=== PATIENT | female | born 1965 | race Caucasian/White ===

== ENCOUNTER 2017-08-31 19:50 | Observation (INO) | payer OTHER ==
[~2017-08-31] VITALS: Ht 160 cm; Wt 74.8 kg
[2017-08-31 20:48] LABS: HEMOGLOBIN 14.9 G/DL (11.9-15.5); MCH 28.8 PG (29.0-34.0); MCHC 34.7 G/DL (30.0-36.0); PLATELET COUNT 282 K/uL (156-360); RBC DIS.WIDTH-CV 12.8 % (11.8-14.6); RBC DIS.WIDTH-SD 38.9 % (39-53); RED BLOOD COUNT 5.18 M/uL (3.80-5.20); WHITE BLOOD COUNT 8.6 K/uL (4.1-10.2)
[2017-08-31 21:07] LABS: CHLORIDE 104 MEQ/L (99-109); POTASSIUM 3.9 MEQ/L (3.7-5.4); SODIUM 138 MEQ/L (136-147)
[2017-08-31 21:09] LABS: TROP-I INTERPRETATION NEGATIVE; TROPONIN-I < 0.01 ng/mL (0.0-0.30)
[2017-08-31 21:12] LABS: CREATININE 0.7 MG/DL (0.6-1.3); GFR ESTIMATE (CALCULATED) > 59 mL/min/; GLUCOSE 119 mg/dL (70-99); UREA NITROGEN (BUN) 9 mg/dL (9-23)
[2017-08-31 23:07] LABS: PTT 34.6 SEC (25-37)
[2017-08-31 23:18] LABS: ALBUMIN 4.4 G/DL (3.2-4.8); CHLORIDE 105 MEQ/L (99-109); POTASSIUM 3.8 MEQ/L (3.7-5.4); SODIUM 138 MEQ/L (136-147); TOTAL BILIRUBIN 1.4 MG/DL (0.0-1.0)
[2017-08-31 23:24] LABS: ALKALINE PHOSPHATASE 77 IU/L (3-129); ALT (GPT) 18 IU/L (3-49); AST (GOT) 19 IU/L (2-34); CREATININE 0.7 MG/DL (0.6-1.3); GFR ESTIMATE (CALCULATED) > 59 mL/min/; GLUCOSE 119 mg/dL (70-99); LIPASE 49 U/L (1.0-51.0); TOTAL PROTEIN 7.1 G/DL (6.4-8.3); UREA NITROGEN (BUN) 9 mg/dL (9-23)
[2017-09-01] MEDS ORDERED: VITAMIN D22000 UNIT PO (01:29)
[2017-09-01] MEDS ORDERED: POTASSIUM GLU2.5 ME1 PO (01:30)
[2017-09-01] MEDS ORDERED: ECHINACEA HERB380 MG PO (01:30)
[2017-09-01] MEDS ORDERED: CINNAMON500 MG PO (01:30)
[2017-09-01] MEDS ORDERED: CLARITIN-D 21 TABLET PO (01:30)
[2017-09-01] MEDS ORDERED: FISH OIL 500 M1 EAC2 PO (01:31)
[2017-09-01] MEDS ORDERED: FLORASTOR250 MG PO (01:31)
[2017-09-01] MEDS ORDERED: VITAMIN C1000 MG PO (01:31)
[2017-09-01] MEDS ORDERED: VITAMIN E400 UNIT PO (01:31)
[2017-09-01] MEDS ORDERED: LO-DOSE ASPIRIN81 M1 PO (01:32)
[2017-09-01] MEDS ORDERED: ADVIL200 MG PO (01:32)
[2017-09-01 03:17] VITALS: BP 136/91
[2017-09-01 07:00] LABS: TROP-I INTERPRETATION NEGATIVE; TROPONIN-I < 0.01 ng/mL (0.0-0.30)
[2017-09-01 08:00] VITALS: BP 140/95
[2017-09-01 11:52] VITALS: BP 103/51
[2017-09-01 12:32] VITALS: BP 130/89
[2017-09-01 12:34] LABS: TROP-I INTERPRETATION NEGATIVE; TROPONIN-I < 0.01 ng/mL (0.0-0.30)
[2017-09-01] MEDS ORDERED: LEVOFLOXACIN750 MG PO (13:54)
[2017-09-01 16:06] VITALS: BP 135/86
== END 2017-09-01 17:58 | disposition home or self-care (01) ==
LOC: EME 19:50 → EDOF 09-01 01:36 → ENRESERV 09-01 01:40 → 5WEST 09-01 03:10
PROVIDERS: Emergency Medicine; Family Medicine
DX: R07.9 Chest pain, unspecified (principal); R06.00 Dyspnea, unspecified; R94.2 Abnormal results of pulmonary function studies; N63.10 Unspecified lump in the right breast, unspecified quadrant; E04.2 Nontoxic multinodular goiter; Z82.49 Family history of ischemic heart disease and other diseases of the circulatory system; R03.0 Elevated blood-pressure reading, without diagnosis of hypertension; Z90.49 Acquired absence of other specified parts of digestive tract
CPT/HCPCS: 71046; 71275; 74230; 80048; 80053; 83690; 84439; 84443; 84481; 84484; 85027; 85610; 85730; 92611 GN; 93005; 99281; 99285; G0378; G8996 GN CH; G8997 GN CH; G8998 GN CH; J1650; J1885; J7030